=== PATIENT | male | born 1975 | race Two or more races ===

== ENCOUNTER 2020-11-13 08:48 | Inpatient (IN) | payer SELFPAY ==
[~2020-11-13] VITALS: Ht 167.6 cm; Wt 97.5 kg
[2020-11-13] MEDS ORDERED: DexAMETHasone SOD PHOS 10MG/1ML VIAL INJ IV ONE (10:15)
[2020-11-13] MEDS ORDERED: cefTRIAXone 1GM/50ML D5W 50 ML IV ONE (10:15)
[2020-11-13] MEDS ORDERED: DOXYCYCLINE 100MG/250ML 250 ML IV ONE (10:15)
[2020-11-13 10:21] LABS: Basophils # (auto) 0 10 ^3/uL (0-0.2); Basophils % (auto) 0.1 % (0.0-2.0); Eosinophils # (auto) 0 10 ^3/uL (0-0.8); Hematocrit 42.1 % (41.0-53.0); Lymphocytes # (auto) 0.8 10 ^3/uL (0.4-5.4); Lymphocytes % (auto) 12.3 % (10.0-50.0); Mean Corpuscular Hemoglobin 31.4 pg (28.0-32.0); Mean Corpuscular Hgb Conc. 35.7 g/dL (32.0-36.0); Mean Corpuscular Volume 88.1 fL (80.0-100.0); Monocytes # (auto) 0.5 10 ^3/uL (0-1.3); Monocytes % (auto) 8.2 % (0.0-12.0); Neutrophils % (auto) 79.4 % (37.0-80.0); Nucleated Red Blood Cells % 0.4 %; Platelet Count (auto) 202 10^3/uL (140-450); Red Blood Cells 4.78 10^6/uL (4.5-5.90); Red Cell Distribution Width 13.1 % (11.8-14.3); White Blood Cell 6.3 10^3/uL (4.4-10.8)
[2020-11-13 10:29] LABS: Potassium 3.1 mmol/L (3.5-5.1)
[2020-11-13] MEDS ORDERED: ZINC SULFATE 220mg CAP or TAB PO ONE (10:30)
[2020-11-13] MEDS ORDERED: ASCORBIC ACID 500 MG TAB PO ONE (10:30)
[2020-11-13 11:07] LABS: Albumin 3.6 g/dL (3.4-5.0); BUN/Creatinine Ratio 10.6; Calcium 8.3 mg/dL (8.5-10.1)
[2020-11-13 11:09] LABS: Bilirubin, Total 0.9 mg/dL (0.2-1.0); Total Protein 7.7 g/dL (6.4-8.2)
[2020-11-13] MEDS ORDERED: REMDESIVIR PER PHARMACY 0 ML IV SCH (17:30)
[2020-11-13] MEDS ORDERED: ALBUTEROL SULF HFA 90MCG INH 200DOSE IN PRN (17:30)
[2020-11-13] MEDS ORDERED: ACETAMINOPHEN 500 MG TAB PO PRN (17:30)
[2020-11-13] MEDS ORDERED: NITROGLYCERIN 0.4 MG SL TAB SL PRN (17:30)
[2020-11-13] MEDS ORDERED: HYDROcodone-ACET 5/325MG TAB PO PRN (17:30)
[2020-11-13] MEDS ORDERED: MORPHINE SULF INJ 2 MG/ML SYRINGE 1ML IV PRN ×2 (17:30)
[2020-11-13] MEDS ORDERED: guaiFENesin-DM 100/10mg/5ml SYR PO PRN (17:30)
[2020-11-13] MEDS ORDERED: ONDANSETRON HCL 4 MG/2 ML VIAL IV PRN (17:30)
[2020-11-13] MEDS ORDERED: POTASSIUM CHL 20 Meq TABLET PO ONE (17:45)
[2020-11-13] MEDS: BUDESONIDE (INHALATION) 180 MCG IH IN SCH (22:00)
[2020-11-13] MEDS: ENOXAPARIN SOD 40 MG/0.4 ML SYRINGE SC SCH (22:45)
[2020-11-14 01:48] VITALS: BP 134/67
[2020-11-14 08:00] VITALS: BP 110/60
[2020-11-14 08:33] LABS: INR 1.01 (0.9-1.15)
[2020-11-14 08:46] LABS: Calcium 8.2 mg/dL (8.5-10.1); Potassium 3.1 mmol/L (3.5-5.1)
[2020-11-14 08:51] LABS: BUN/Creatinine Ratio 15.4; Bilirubin, Total 0.8 mg/dL (0.2-1.0); Total Protein 6.8 g/dL (6.4-8.2)
[2020-11-14] MEDS ORDERED: cefTRIAXone 1GM/50ML D5W 50 ML IV SCH (09:00)
[2020-11-14] MEDS: BUDESONIDE (INHALATION) 180 MCG IH IN SCH (10:00)
[2020-11-14] MEDS ORDERED: CHOLECALCIFEROL (VITD3) 2,000 UNIT CAP PO SCH (10:00)
[2020-11-14] MEDS ORDERED: FAMOTIDINE 20 MG TAB PO SCH (10:00)
[2020-11-14] MEDS ORDERED: ZINC SULFATE 220mg CAP or TAB PO SCH (10:00)
[2020-11-14] MEDS ORDERED: ASCORBIC ACID 1,000 MG TAB PO SCH (10:00)
[2020-11-14] MEDS ORDERED: DexAMETHasone SOD PHOS 10MG/1ML VIAL INJ IV SCH (10:00)
[2020-11-14] MEDS ORDERED: AZITHROMYCIN 500MG/ 250ML 250 ML IV SCH (10:00)
[2020-11-14] MEDS: ENOXAPARIN SOD 40 MG/0.4 ML SYRINGE SC SCH (10:25)
[2020-11-14] MEDS ORDERED: POTASSIUM CHLORIDE 40 MEQ, LIDOCAINE 1% (LOCAL ANESTH.) 4 ML in SODIUM CHL 0.9% 250 ML IV ONE (14:30)
[2020-11-14] MEDS ORDERED: ASCO10003 PO (15:10)
[2020-11-14] MEDS ORDERED: CHOL1CAP47 PO (15:10)
[2020-11-14] MEDS ORDERED: DEXT1SYP9 PO (15:10)
[2020-11-14] MEDS ORDERED: FAMO-12 PO (15:10)
[2020-11-14] MEDS ORDERED: ATO40T PO (15:10)
[2020-11-14] MEDS ORDERED: ZINC100T5 PO (15:10)
[2020-11-14] MEDS ORDERED: POTA10TA51 PO (15:10)
[2020-11-14] MEDS ORDERED: DEX4T PO (15:10)
[2020-11-14] MEDS ORDERED: ASPI81CH59 PO (15:10)
[2020-11-14] MEDS ORDERED: FURO1TAB33 PO (15:10)
[2020-11-14] MEDS ORDERED: LEVO750T64 PO (15:10)
[2020-11-14] MEDS ORDERED: ALBUAER3 IN (15:10)
[2020-11-14 16:00] VITALS: BP 101/62
[2020-11-14 16:44] VITALS: BP 101/62
== END 2020-11-14 19:45 | disposition home or self-care (01) | DRG 177 ==
LOC: ER 08:48 → TELE 17:29 → TELE-EAST 11-14 01:32
PROVIDERS: ADMIT Nurse Practitioner Acute Care; ATTEND Hospitalist
DX: U07.1 COVID-19 (principal); J96.01 Acute respiratory failure with hypoxia; J12.82 Pneumonia due to coronavirus disease 2019; D68.59 Other primary thrombophilia; E78.5 Hyperlipidemia, unspecified; E87.6 Hypokalemia; E66.01 Morbid (severe) obesity due to excess calories; Z68.34 Body mass index [BMI] 34.0-34.9, adult; D89.839 Cytokine release syndrome, grade unspecified
CPT/HCPCS: 36415; 36600; 71045; 80053; 82728; 82805; 83605; 85025; 85379; 85610; 86141; 87040; 87426; 93005; 99291; G0378; J0696; J1100; J2001; J3490